=== PATIENT | male | born 1985 | race Caucasian/White ===

== ENCOUNTER → 2024-04-03 13:56 | Outpatient (REF) | payer OTHER, SELFPAY | LOC: HWEVLT 13:56 | PROVIDERS: ATTENDING PHYSICIAN Radiology Vascular & Interventional Radiology | DX: I83.892 Varicose veins of left lower extremity with other complications (principal) | CPT/HCPCS: 93971 ==

== ENCOUNTER → 2024-05-07 09:33 | Outpatient (REF) | payer OTHER, SELFPAY | LOC: HWEVLT 09:33 | PROVIDERS: ATTENDING PHYSICIAN Radiology Vascular & Interventional Radiology | DX: I83.892 Varicose veins of left lower extremity with other complications (principal) | CPT/HCPCS: 36478; C1769 ==

== ENCOUNTER → 2024-05-21 08:59 | Outpatient (REF) | payer OTHER, SELFPAY | LOC: HWEVLT 08:59 | PROVIDERS: ATTENDING PHYSICIAN Radiology Vascular & Interventional Radiology | DX: I83.892 Varicose veins of left lower extremity with other complications (principal) | CPT/HCPCS: 93971 ==

== ENCOUNTER → 2024-07-15 09:06 | Outpatient (REF) | payer OTHER, SELFPAY | LOC: HWEVLT 09:06 | PROVIDERS: ATTENDING PHYSICIAN Radiology Vascular & Interventional Radiology | DX: I83.892 Varicose veins of left lower extremity with other complications (principal) | CPT/HCPCS: 93971 ==

== ENCOUNTER 2024-10-23 06:21 | Day surgery (SDC) | payer OTHER, SELFPAY | END 2024-10-23 12:34 | disposition home or self-care (01) | LOC: GI 06:21 | PROVIDERS: ATTENDING PHYSICIAN Internal Medicine Gastroenterology | DX: K44.9 Diaphragmatic hernia without obstruction or gangrene (principal); K31.89 Other diseases of stomach and duodenum; K21.9 Gastro-esophageal reflux disease without esophagitis | CPT/HCPCS: 43239; 88305; 88342 ==

== ENCOUNTER 2025-04-15 09:42 | Emergency (ER) | payer OTHER, SELFPAY ==
[2025-04-15 09:51] VITALS: BP 142/89
--- NOTE | 2025-04-15 11:51 | ED.GENMED ---
History of Present Illness
General
Chief Complaint: Headache
Source: patient and spouse
Time Seen by Provider: 04/15/25 11:10
History of Present Illness
History of Present Illness:
39-year-old male with no significant past medical history presents to the emergency department for evaluation after he had bilateral eye visual disturbance yesterday with a headache following the visual disturbance, today awoke continuing to feel
little bit fatigued and 'out of it' so decided to come to the ER for further examination. Patient went to the croze cutter helper yesterday and was told that there was no ophthalmologic complications found and that he likely had a ophthalmic migraine.
Patient notes that he normally does not get headaches or migraines. He notes that presently he does feel little bit better than he did this morning. Patient is denying any fevers, chills, rigors, neck pain or stiffness, focal weakness or numbness,
chest pain or shortness of breath, palpitations or any other concerns. He notes that initially the disturbance started in the right eye shortly after working out at the gym, this symptom lasted for about an hour or so and then subsided but then the
left eye started described to be as if he had tunnel vision, this lasted for about 20 minutes and then occurred again in the right eye. Currently no visual disturbances. Patient and his spouse were most concerned for possible aneurysm as patient
has 2 separate uncles on his mother side who did have a cerebral aneurysm and an aortic aneurysm.
Past History
Past History
ED Past Medical History: None
ED Past Surgical History: None and Orthopedic
Social History
Tobacco: Non-smoker
Alcohol: Occasional
Drug: None
Personal:
Living: with family
Employment: Employed
Review of Systems
Review of Systems
All Other Systems: ROS reviewed and negative except as documented in HPI and ROS
Phy Exam
Physical Exam
Physical Exam:
GENERAL: Alert , in no apparent distress
HEAD: Normocephalic atraumatic
EYE: conjunctiva clear, pupils 4 mm bilateral, EOMI, no nystagmus
NECK: Supple, no carotid bruit
ENT: o/p clr, mmm.
CARDIAC: Regular rate and rhythm
LUNGS: Clear breath sounds bilaterally, no acute respiratory distress, no wheezes/rales/rhonchi
NEUROLOGICAL: Alert and oriented, ambulatory with steady gait, no dysmetria, no dysarthria, no aphasia moves all extremities
SKIN: Warm and dry, skin intact.
MUSCULOSKELETAL: well perfused.
PSYCH: Normal and appropriate interaction.
Scores
NIH Stroke Score
Level of Consciousness: 0 - Alert
LOC Questions: 0-Answers both correctly
LOC Commands: 0-Performs both correctly
Best Horizontal Gaze: 0-Normal
Visual Duarte: 0=Normal, no visual loss
Facial Palsy: 0=Normal, symmetrical
Motor - Right Arm: 0=No drift 10 seconds
Motor - Left Arm: 0=No drift 10 seconds
Motor - Right Le-No drift 5 seconds
Motor - Left Le-No drift 5 seconds
Limb Ataxia: 0-Absent
Sensation: 0-Normal
Best Language: 0-No aphasia
Dysarthria: 0-Normal
Extinction and Inattention: 0-No abnormality
NIH Total Score:: 0
Heart Failure Risk
Heart Failure Risk Score: Not Applicable
Heart Score for Chest Pain Patients
STEMI patient?: Not applicable
Withdrawal Assessment of Alcohol
Withdrawal Assessment Completed?: Not applicable
Course
Orders/Labs/Results
Orders:
Orders
04/15/25 09:56
CT Head W/o Iv Contrast Urgent
Comment:
Reason For Exam: headache, visual disturbance
04/15/25 11:43
CT Head & Neck Angio W/wo IV Urgent
Comment:
Reason For Exam: visual disturbances, headache, fam hx aneurysm
04/15/25 11:54
CRP [C-Reactive Protein] Urgent
Complete Blood Count/With Diff Urgent
Comprehensive Metabolic Panel Urgent
ESR [Erythrocyte Sed Rate] Urgent
Lyme Progressive Urgent
Abnormal Lab Results
04/15/25
11:54
Absolute Neuts (auto) 6.9 H 10^3/uL
(1.4-6.5)
Absolute Monos (auto) 0.8 H 10^3/uL
(0.1-0.6)
Lymphocytes % 18.0 L %
(20.5-51.1)
BUN 21 H mg/dl
(9-20)
Alkaline Phosphatase 35 L U/L
(38-126)
04/15/25 11:54
04/15/25 11:54
Vital Signs
Initial and Last Documented VS:
Initial Vital Signs
Temp Pulse Resp BP Pulse Ox
97.9 F 70 16 142/89 98
04/15/25 09:51 04/15/25 09:51 04/15/25 09:51 04/15/25 09:51 04/15/25 09:51
Last Documented Vital Signs
Temp Pulse Resp BP Pulse Ox
97.9 F 70 16 142/89 98
04/15/25 09:51 04/15/25 09:51 04/15/25 09:51 04/15/25 09:51 04/15/25 11:56
MDM/Problems Addressed
Differential Diagnosis Includes:
Ocular migraine
Tension headache
GCA
Lyme
TIA/CVA
Malignancy
ICH
Aneurysm
MDM/Problems Addressed:
39-year-old male presenting to the ER for evaluation after he developed a visual disturbance followed by headache yesterday, today still did not feel his usual self. Had ocular exam yesterday where he was told his retina and vision as well as
intraocular pressures were within normal limits and his symptoms were not likely related to an ophthalmologic complication. Today patient is overall well-appearing without any focal deficits. CT of the head has been ordered from triage and is
within normal limits. Overall my suspicion for aneurysm is very low but given family history will check CTA. Given the bilateral nature of symptoms I also have less suspicion for an acute neurologic emergent pathology. Labs including Lyme titers
ordered. Anticipate discharge home with outpatient follow-up as needed.
*Radiology
Radiology exam reviewed: radiology read reviewed
*Pulse Oximetry
SaO2: 98
Oxygen Mode of Delivery: Room air
Patient hypoxic: no
*Critical Care Note
Total Time (30-74mins, 75-104mins- exclusive of procedures): Not Applicable
Patient Management
Escalation/DeEscalation of care consider admission/obs:
Imaging studies unremarkable. Labs reassuring. Patient stable for d/c home and aware of return precautions. Will follow up with PCP as needed
ED Attending Note
-
Portions of this chart may have been created with voice recognition software.� Occasional wrong word or��sound alike� substitutions may have occurred due to the inherent limitations of voice recognition software.
Discharge Plan
Departure
Patient Disposition: Home (Routine Discharge)
Date of Disposition: 04/15/25
Time of Disposition: 14:25
Patient with high blood pressure during this ER visit?: Yes
Discharge Problem:
Headache, migraine
Instructions: Migraines (DC)
Prescriptions:
No Action
oxycodone 5 MG tablet
5 mg PO Q4HPRN PRN (Reason: pain) Qty: 20 0RF
Referrals:
Mayo Reddy MD [Family Provider, Family Practice]
Interventions
Interventions:
*Nursing Disposition Last Done: 04/15/25 14:39
ED- Neurological Assessment Last Done: 04/15/25 12:11
Discharge Date and Time
Discharge Date/Time: 04/15/25 14:39
Print Language: EQUATORIAL GUINEAN
[2025-04-15 12:12] LABS: Hematocrit 44.9 % (39.0-52.0); Hemoglobin 15.6 g/dL (13.0-18.0); Mean Corp Hgb Conc. 34.7 g/dL (33.0-37.0); Mean Corpuscular Volume 83.0 fL (80.0-94.0); Nucleated Red Blood Cells % 0 % (-); Platelet Count 269 10^3/uL (130-400); Red Cell Dist. Width 11.9 % (11.5-14.5)
[2025-04-15 12:24] LABS: ALT (SGPT) 33 U/L (0-50); AST (SGOT) 32 U/L (17-59); Albumin 4.7 g/dl (3.5-5.0); Alkaline Phosphatase 35 U/L (38-126); Blood Urea Nitrogen 21 mg/dl (9-20); Calcium 9.4 mg/dl (8.4-10.2); Carbon Dioxide 30 mmol/L (22-30); Chloride 103 mmol/L (98-107); Glucose 91 mg/dl (70-99); Potassium 4.5 mmol/L (3.5-5.1); Sodium 137 mmol/L (135-145); Total Protein 7.1 g/dl (6.3-8.2); eGFR > 60.00
[2025-04-15 12:29] LABS: C-Reactive Protein < 5.00 mg/L (0.0-10.00)
[2025-04-16 13:53] LABS: Lyme Antibody Screen, EIA Negative (Negative)
== END 2025-04-15 14:39 | disposition home or self-care (01) ==
LOC: EMR 09:42
PROVIDERS: Physician Assistant Medical; EMERGENCY PHYSICIAN Emergency Medicine; FAMILY PHYSICIAN Family Medicine
DX: G43.909 Migraine, unspecified, not intractable, without status migrainosus (principal); Z82.49 Family history of ischemic heart disease and other diseases of the circulatory system
CPT/HCPCS: 99284; 70450; 70496; 70498; 80053; 85025; 85652; 86140; 86618; Q9967